=== PATIENT | female | born 2000 | race Two or more races ===

== ENCOUNTER 2022-11-08 13:58 | Emergency (ER) | payer SELFPAY ==
[~2022-11-08] VITALS: Ht 172.7 cm; Wt 81.8 kg
[2022-11-08 16:40] VITALS: BP 152/71
== END 2022-11-08 16:44 | disposition home or self-care (01) ==
LOC: EMS 14:02
DX: L80 Vitiligo (principal); F12.90 Cannabis use, unspecified, uncomplicated
CPT/HCPCS: 99281; Z7502